=== PATIENT | male | born 2000 ===

== ENCOUNTER 2020-11-05 20:25 | Observation (INO) ==
[2020-11-05] MEDS ORDERED: ALBUTEROL 2.5 MG/3 ML NEB RESP TX PRN (23:57)
[2020-11-05] MEDS ORDERED: hydrALAZINE 20 MG/1 ML VIAL IV PRN (23:57)
[2020-11-05] MEDS ORDERED: DOCUSATE SODIUM 100 MG CAPSULE PO PRN (23:57)
[2020-11-05] MEDS ORDERED: ONDANSETRON 4 MG/2 ML VIAL IV PRN (23:57)
[2020-11-05] MEDS ORDERED: ACETAMINOPHEN 325 MG TABLET PO PRN (23:57)
[2020-11-06] MEDS ORDERED: ENOXAPARIN 40 MG/0.4 ML SYRINGE SUBCUT SCH (01:00)
[2020-11-06] MEDS: SODIUM CHLORIDE 0.9% 1,000 ML IV SCH ×2 (01:22→08:55)
[2020-11-06 02:27] LABS: Basophils % 0.3 % (0.0-0.8); Eosinophils # 0.2 10*3/uL (0.0-0.87); Eosinophils % 1.2 % (0.00-10.9); Hematocrit 41.7 VOL% (42.0-52.0); Hemoglobin 13.8 GM/DL (14.0-18.0); Immature Granulocytes % 0.4 %; Immature Granulocytes Absolute 0.05 #; Lymphocytes # 3.4 10*3/uL (1.4-4.0); Lymphocytes % 25.5 % (21.2-54.2); Mean Corpuscular HGB Conc 33.1 GM/DL (32-36); Mean Platelet Volume 10.5 FL (9.6-12.0); Monocytes % 7.6 % (1.7-12.7); Platelet Count 275 T/CUMM (130-400); Red Blood Count 4.39 MC/CUMM (3.8-5.5); Red Cell Distribution Width 12.4 % (9.3-17.3); White Blood Count 13.5 T/CUMM (4-12)
[2020-11-06 02:58] LABS: Salicylate < 2.8 MG/DL (2.8-20)
[2020-11-06 02:59] LABS: Acetaminophen < 2.0 UG/ML (10-30)
[2020-11-06 03:00] LABS: Albumin 3.5 G/DL (3.4-5.0); Bilirubin,Total 1.3 MG/DL (0.2-1.0); Calcium 8.6 MG/DL (8.5-10.1); Osmolality,Calculated 280.1 MOS/KG (273-304); Potassium 3.6 MMOL/L (3.5-5.1); Total Protein 6.7 G/DL (6.4-8.3)
[2020-11-06 03:17] VITALS: BP 118/62
[2020-11-06 08:22] LABS: Barbiturates Screen,Urine Negative (Negative); Benzodiazepines Screen,Urine Positive (Negative); Cannabinoid Screen,Urine Positive (Negative); Opiate Screen,Urine Negative (Negative); Phencyclidine Screen,Urine Negative (Negative)
== END 2020-11-06 13:17 | disposition home or self-care (01) ==
LOC: N.CC → SUATTDRO 23:37
PROVIDERS: ADMIT Internal Medicine; ATTEND Internal Medicine